=== PATIENT | female | born 1985 | race Caucasian/White ===

== ENCOUNTER 2022-07-04 18:30 | Inpatient (IN) | payer OTHER ==
[2022-07-04 20:09] LABS: BASO % 0.5 % (0-2.0); EOS % 0.6 % (0-4.5); HEMATOCRIT 36.2 % (32.4-45.2); HEMOGLOBIN 12.7 GM/dL (10.7-15.3); LYMPH % 21.3 % (8-40); MCH 32.4 pg (25.7-33.7); MCHC 35.1 g/dl (32.0-36.0); MEAN CELL VOLUME 92.4 fl (80-96); MEAN PLT VOLUME 10.1 fl (7.5-11.1); MONO % 8.8 % (3.8-10.2); NEUT % 68.8 % (42.8-82.8); PLATELET COUNT 252 10^3/uL (134-434); RBC 3.92 M/mm3 (3.60-5.2); RDW 13.3 % (11.6-15.6); WHITE BLOOD COUNT 9.2 K/mm3 (4.0-10.0)
[2022-07-04 20:15] LABS: INR 0.92 (0.83-1.09); PROTHROMBIN TIME (PATIENT) 10.6 SEC (9.7-13.0)
[2022-07-04 20:18] LABS: ACTIVATED PTT 28.6 SECONDS (25.2-36.5)
[2022-07-04 20:20] LABS: CALCIUM 8.7 mg/dL (8.5-10.1)
[2022-07-04 20:21] LABS: BLOOD UREA NITROGEN 12.2 mg/dL (7-18)
[2022-07-04 20:24] LABS: CREATININE 0.5 mg/dL (0.55-1.3)
[2022-07-04] MEDS ORDERED: MISOPROSTOL 100 MCG TABLET PV SCH (20:30)
[2022-07-04] MEDS: DEXTROSE 5%-LACTATED RINGERS 1,000 ML IV SCH (20:45)
[2022-07-04 20:53] VITALS: BMI 28.3
[2022-07-04] MEDS ORDERED: SODIUM CHLORIDE 500 ML IV STA (23:52)
[2022-07-05] MEDS ORDERED: morphine SULFATE 4 MG/ML VIAL IVPB ONE ×2 (02:31→05:00)
[2022-07-05] MEDS ORDERED: SODIUM CHLORIDE 500 ML IV STA (02:32)
[2022-07-05] MEDS ORDERED: morphine SULFATE 4 MG/ML VIAL ONE (02:40)
[2022-07-05] MEDS ORDERED: FENTANYL/BUPIVACAINE/NS/PF - PCEA - 50 ML DISP.SYRIN EP ONE (06:09)
[2022-07-05] MEDS ORDERED: NALOXONE HCL 0.4 MG/ML VIAL IVPUSH PRN (06:14)
[2022-07-05] MEDS ORDERED: FENTANYL/BUPIVACAINE/NS/PF - PCEA - 50 ML DISP.SYRIN EP SCH (06:15)
[2022-07-05] MEDS: DEXTROSE 5%-LACTATED RINGERS 1,000 ML IV SCH (07:00)
[2022-07-05] MEDS ORDERED: OXYTOCIN 20 UNITS in 0.9% NS 20 UNIT/1,000 ML INFUS.BAG IV ONE ×2 (08:25→08:46)
[2022-07-05] MEDS ORDERED: LIDOCAINE HCL 1% PRESERVATIVE FREE - 30ML VIAL ONE (08:25)
[2022-07-05] MEDS ORDERED: WITCH HAZEL 50% (TUCKS) 40 PAD/JAR PAD TP PRN (09:33)
[2022-07-05] MEDS ORDERED: BENZOCAINE 20% 57 GM BOTTLE TP PRN (09:33)
[2022-07-05] MEDS ORDERED: BENZOCAINE 28 GM HEMORRHOIDAL OINTMENT TP PRN (09:33)
[2022-07-05 09:41] LABS: CORD BASE EXCESS -5.2 mmol/L (0-2); CORD HCO3 21.9 mmHg (20-29); CORD PCO2 47.6 mmHg (30-78); CORD pH 7.28 (7.14-7.44)
[2022-07-05 09:43] LABS: CORD BASE EXCESS -2.2 mmol/L (0-2); CORD HCO3 24.8 mmHg (20-29); CORD PCO2 49.9 mmHg (30-78); CORD pH 7.314 (7.14-7.44)
[2022-07-05] MEDS ORDERED: OXYTOCIN 20 UNITS in 0.9% NS 20 UNIT/1,000 ML INFUS.BAG IV SCH (09:45)
[2022-07-05] MEDS: LEVOTHYROXINE NA 150 MCG TABLET PO SCH (09:50)
[2022-07-05] MEDS: IBUPROFEN 600 MG TABLET (FP) PO PRN ×2 (13:04→19:38)
[2022-07-05] MEDS ORDERED: DIPHTH,PERTUSS(ACELL),TET 0.5 ML DISP.SYRIN IM ONE (16:00)
[2022-07-05] MEDS ORDERED: FLU VACC QS2022-23(6MOS UP)/PF 60 MCG/0.5 ML SYRINGE IM ONE (16:00)
[2022-07-05 20:51] LABS: HIV INTERPRETATION NEGATIVE (NEGATIVE)
[2022-07-05] MEDS: ACETAMINOPHEN 325 MG TABLET (FP) PO PRN (21:30)
[2022-07-06] MEDS: IBUPROFEN 600 MG TABLET (FP) PO PRN ×3 (02:49→19:34)
[2022-07-06] MEDS: DEXTROSE 5%-LACTATED RINGERS 1,000 ML IV SCH (07:47)
[2022-07-06] MEDS: ACETAMINOPHEN 325 MG TABLET (FP) PO PRN (08:40)
[2022-07-06] MEDS: LEVOTHYROXINE NA 150 MCG TABLET PO SCH (08:56)
[2022-07-06] MEDS ORDERED: LEVOTHYROXINE NA 125 MCG TABLET (FP) PO SCH (09:04)
[2022-07-06 09:24] LABS: BASO % 0.3 % (0-2.0); EOS % 0.8 % (0-4.5); HEMATOCRIT 33.4 % (32.4-45.2); HEMOGLOBIN 11.3 GM/dL (10.7-15.3); LYMPH % 19.8 % (8-40); MCH 31.5 pg (25.7-33.7); MCHC 33.9 g/dl (32.0-36.0); MEAN PLT VOLUME 10.2 fl (7.5-11.1); MONO % 6.6 % (3.8-10.2); NEUT % 72.5 % (42.8-82.8); PLATELET COUNT 230 10^3/uL (134-434); RBC 3.59 M/mm3 (3.60-5.2); RDW 13.5 % (11.6-15.6)
[2022-07-06] MEDS ORDERED: FLU VACC QS2022-23(6MOS UP)/PF 60 MCG/0.5 ML SYRINGE IM ONE (11:00)
[2022-07-06] MEDS ORDERED: DIPHTH,PERTUSS(ACELL),TET 0.5 ML DISP.SYRIN IM ONE (11:00)
[2022-07-06 11:04] VITALS: RESP 18
[2022-07-06] MEDS ORDERED: SENNOSIDES/DOCUSATE COMBO (SENNA PLUS) TABLET (UD) PO PRN (22:00)
[2022-07-07] MEDS: LEVOTHYROXINE NA 150 MCG TABLET PO SCH (06:29)
[2022-07-07 09:46] LABS: POC NITRAZINE POS
[2022-07-07 10:07] VITALS: BP 124/73; PULSE 88; TEMP 98
== END 2022-07-07 12:00 | disposition home or self-care (01) | DRG 542 ==
LOC: JLDR 18:30 → J3W 07-05 11:55
PROVIDERS: ADMIT Obstetrics & Gynecology Maternal & Fetal Medicine; ATTEND Obstetrics & Gynecology Maternal & Fetal Medicine
PROC: 3E0P7VZ Introduction of Hormone into Female Reproductive, Via Natural or Artificial Opening (ICD-10-PCS; 2022-07-04)
PROC: 10E0XZZ Delivery of Products of Conception, External Approach (ICD-10-PCS; principal; 2022-07-05)
PROC: 0UQK7ZZ Repair Hymen, Via Natural or Artificial Opening (ICD-10-PCS; 2022-07-05)
DX: O99.284 Endocrine, nutritional and metabolic diseases complicating childbirth (principal); E89.0 Postprocedural hypothyroidism; Z3A.39 39 weeks gestation of pregnancy; Z37.0 Single live birth
CPT/HCPCS: 36415; 36600; 59409; 80048; 82803; 83986-QW; 85025; 85610; 85730; 86780; 86850; 86900; 86901; 87389; 88307-TC; 90715; C9803-CS; G0008; Q2036; U0003; U0005